=== PATIENT | female | born 1950 | race African-American/Black ===

== ENCOUNTER 2024-09-17 14:30 | Emergency (ER) | payer OTHER ==
[~2024-09-17] VITALS: Ht 152.4 cm; Wt 92.1 kg
[2024-09-17] MEDS ORDERED: BARIUM SULFATE 450 ML ORAL.SUSP PO ONE (16:30)
[2024-09-17 17:03] LABS: HEMATOCRIT 37.5 % (36.0-45.00); HEMOGLOBIN 12.2 g/dL (12.0-15.00); MEAN CELL VOLUME 92.3 fL (80.00-100.00); MEAN CORPUSCULAR HGB CONC 32.6 g/dl (32.0-36.0); PLATELET COUNT 286 K/uL (150-450); RED BLOOD COUNT 4.06 M/uL (4.00-6.00); RED CELL DISTRIBUTION WIDTH 14.4 % (11.5-14.5)
[2024-09-17 17:24] LABS: ALBUMIN 3.2 gm/dL (3.4-5.0); BILIRUBIN TOTAL 0.49 mg/dL (0.3-1.2); CALCIUM 9.2 mg/dL (8.5-10.1); CREATININE SERUM 0.76 mg/dL (0.55-1.02); GFR 73.99; GLOBULINA 4.4 G/DL (2.4-3.5); POTASSIUM 3.91 mEq/L (3.5-5.1); TOTAL PROTEIN 7.6 gm/dL (6.4-8.2)
[2024-09-17 17:26] LABS: INR 1.03; PARTIAL THROMBOPLASTIN TIME 23.6 SECONDS (22.0-34.0); PROTHROMBIN TIME 11.2 SECONDS (9.0-11.5)
== END 2024-09-17 21:53 | disposition home or self-care (01) ==
LOC: ER 14:33
PROVIDERS: General Practice
DX: K45.8 Other specified abdominal hernia without obstruction or gangrene (principal); I10 Essential (primary) hypertension; E03.8 Other specified hypothyroidism; E78.49 Other hyperlipidemia; C79.9 Secondary malignant neoplasm of unspecified site; Z85.89 Personal history of malignant neoplasm of other organs and systems; K74.69 Other cirrhosis of liver; C48.1 Malignant neoplasm of specified parts of peritoneum; R18.0 Malignant ascites
CPT/HCPCS: 36415; 74177; 99284; Q9965